=== PATIENT | female | born 1930 | race Caucasian/White ===

== ENCOUNTER 2017-01-26 08:47 | Day surgery (SDC) | payer MEDICARE, OTHER ==
--- NOTE | ~2017-01-26 | EGD ---
EGD REPORT [facility] [address] [place] [address] NAME: ISAIAS GALICIA : [birth year] STATUS : REG [facility] PAT#: [id number] AGE: 86 ADM/REG DATE : 01/26/17 MR#: [id number] REPORT SERV DATE: 01/26/17 DICTATED BY: MEHRAN FITCH DATE: 01/26/17 REPORT STATUS : Draft TRANSCRIBED BY: [facility] DATE: 01/26/17 Endoscopy Center Patient Name: Isaias Galicia Date of : 1930 Attending MD: MEHRAN FITCH, Procedure Date No Time: 01/26/2017 Procedure: Upper GI endoscopy Indications: Dysphagia Referring MD: CLAUDIO COCHRAN JR. Medicines: Monitored Anesthesia Care Complications: No immediate complications. Estimated blood loss: None. Procedure: Pre-Anesthesia Assessment: - ASA Grade Assessment: III - A patient with severe systemic disease. After obtaining informed consent, the endoscope was passed under direct vision. Throughout the procedure, the patient's blood pressure, pulse, and oxygen saturations were monitored continuously. The GIF [id number] was introduced through the mouth, and advanced to the second part of duodenum. The upper GI endoscopy was accomplished without difficulty. The patient tolerated the procedure well. Findings: A moderate Schatzki ring (acquired) was found at the gastroesophageal junction. A guidewire was placed and the scope was withdrawn. Dilation was performed with a Savary dilator with no resistance at 54 Fr. The exam of the esophagus was otherwise normal. The stomach was normal. The cardia and gastric fundus were normal on retroflexion. The examined duodenum was normal. Impression: - Moderate Schatzki ring. Dilated. - Normal stomach. - Normal examined duodenum. Recommendation: - Patient has a contact number available for emergencies. The signs and symptoms of potential delayed complications were discussed with the patient. Return to normal activities tomorrow. Written discharge instructions were provided to the patient. - Return to previous diet. - Continue present medications. - Return to GI clinic PRN. EGD REPORT [facility] [address] [place], [place] [address]. [address] NAME: ISAIAS GALICIA : [birth year] STATUS : REG [facility] PAT#: [id number] AGE: 86 ADM/REG DATE : 01/26/17 MR#: [id number] REPORT SERV DATE: 01/26/17 DICTATED BY: MEHRAN FITCH DATE: 01/26/17 REPORT STATUS : Draft TRANSCRIBED BY: [employer] DATE: 01/26/17 Procedure Code(s): --- Professional --- 55659, Esophagogastroduodenoscopy, flexible, transoral; with insertion of guide wire followed by passage of dilator(s) through esophagus over guide wire Diagnosis Code(s): --- Professional --- K22.2, Esophageal obstruction R13.10, Dysphagia, unspecified CPT copyright 2013 [employer]. All rights reserved. The codes documented in this report are preliminary and upon first coat operator review may be revised to meet current compliance requirements. MEHRAN FITCH, 01/26/2017 9:51 AM Number of Addenda: 0 Note Initiated On: 01/26/2017 9:31 AM [address] [place] [address]
[~2017-01-26 08:47] MED LIST: BENICAR20 PO; BENTYL20 PO; CAT1 PO; CLARIT10 PO; CULTURELLE; DETROL2 PO; FISH-EPA1000 MG PO; GAS-X80 MG PO; HYZAAR1 TAB PO; LEVOTHYROXIN50 MCG PO; LINZESS 145 M145 MCG PO; Levothyroxin PO; MAXIMUM D3 PO; MCZ25 PO; NAC600 MG PO; NASONEX NAS; NORCO1 TA2 PO; NORV10 PO; NORV5 PO; PRESERVISION A1 EAC1 PO; PRILOSEC40 MG PO; SURBEX-T1 TAB PO; TRIBENZOR 40-11 EAC1 PO; VESICARE5 PO; VIT D PO; VITAMIN B-121000 MC1 SL; VITAMIN D31000 UNIT PO; ZANTAC 150 PO; ZANTAC 75 PO; ZANTAC150 MG PO; ZOL100 PO; ZYRTEC ALLGY10 MG PO; [UNRECOGNIZED DRUG - OTHER]
== END 2017-01-26 23:59 | disposition home or self-care (01) ==
LOC: DMU 08:47
PROVIDERS: Internal Medicine Gastroenterology
PROC: 0D748ZZ Dilation of Esophagogastric Junction, Via Natural or Artificial Opening Endoscopic (ICD-10-PCS; principal; 2017-01-26 10:30)
DX: K22.2 Esophageal obstruction (principal); I10 Essential (primary) hypertension; M19.90 Unspecified osteoarthritis, unspecified site; M79.7 Fibromyalgia; K21.9 Gastro-esophageal reflux disease without esophagitis; F41.9 Anxiety disorder, unspecified; B19.20 Unspecified viral hepatitis C without hepatic coma; E03.9 Hypothyroidism, unspecified; Z88.5 Allergy status to narcotic agent; Z88.6 Allergy status to analgesic agent; Z79.899 Other long term (current) drug therapy; Z79.891 Long term (current) use of opiate analgesic; Z88.8 Allergy status to other drugs, medicaments and biological substances; Z90.89 Acquired absence of other organs; Z90.710 Acquired absence of both cervix and uterus; Z98.41 Cataract extraction status, right eye; Z98.42 Cataract extraction status, left eye; Z98.890 Other specified postprocedural states